=== PATIENT | female | born 1955 | race African-American/Black ===

== ENCOUNTER 2019-05-26 10:39 | Emergency (ER) | payer OTHER ==
[~2019-05-26] VITALS: Ht 165.1 cm; Wt 82.1 kg
[2019-05-26 10:40] VITALS: BP 143/75
[2019-05-26] MEDS ORDERED: ROXICODONE5 MG PO (11:39)
== END 2019-05-26 11:40 | disposition home or self-care (01) ==
LOC: ER 10:39
DX: S93.601A Unspecified sprain of right foot, initial encounter (principal); I10 Essential (primary) hypertension; M79.7 Fibromyalgia; Z90.49 Acquired absence of other specified parts of digestive tract; X58.XXXA Exposure to other specified factors, initial encounter; Y93.B9 Activity, other involving muscle strengthening exercises; Y92.89 Other specified places as the place of occurrence of the external cause; Y99.8 Other external cause status

== ENCOUNTER 2019-06-14 09:30 | Inpatient (IN) | payer OTHER ==
[~2019-06-14] VITALS: Ht 165.1 cm; Wt 81.7 kg
[~2019-06-14 09:30] MED LIST: ROXICODONE5 MG PO
[2019-06-14 09:33] VITALS: BP 147/88
[2019-06-14 10:27] LABS: HEMATOCRIT 38.3 % (37.0-47.0); HEMOGLOBIN 12.5 gm/dL (12.0-15.0); MCH 27.9 pg (26.0-34.0); MCHC 32.6 g/dL (28.0-37.0); MCV 85.5 fL (80.0-100.0); RBC 4.48 mil/uL (4.20-5.00); RDW 14.3 % (10.5-14.5); WBC 4.9 thou/uL (4.0-11.0)
[2019-06-14 10:39] LABS: ANION GAP 11 mmol/L (7-16); BUN 13 mg/dL (7-18); CALCIUM 9.7 mg/dL (8.5-10.1); CHLORIDE 99 mmol/L (98-107); CO2 29 mmol/L (21-32); CREATININE 0.9 mg/dL (0.6-1.0); GLUCOSE 171 mg/dL (74-106); SALICYLATE < 2.8 mg/dL (2.8-20.0); SODIUM 139 mmol/L (136-145)
[2019-06-14 10:47] LABS: URINE BILIRUBIN NEGATIVE (Negative); URINE BLOOD NEGATIVE (Negative); URINE CLARITY CLEAR; URINE COLOR YELLOW; URINE GLUCOSE-RANDOM* NEGATIVE (Negative); URINE KETONES NEGATIVE (Negative); URINE NITRITE-REFLEX NEGATIVE (Negative); URINE PROTEIN (DIPSTICK) NEGATIVE (Negative); URINE UROBILINOGEN 0.2 E.U./dl (0.2-1.0)
[2019-06-14 10:48] LABS: URINE LEUKOCYTES-REFLEX 1+ (Negative)
[2019-06-14 10:55] LABS: AMP/METHAMP Negative (Negative); BARBITURATES Negative (Negative); BENZODIAZEPINES Negative (Negative); COCAINE Negative (Negative); METHADONE Negative (Negative); OPIATES Negative (Negative); PCP Negative (Negative)
[2019-06-14 11:06] LABS: BACTERIA-REFLEX 1-9 Few /HPF (None Seen); CASTS None Seen /LPF (None Seen); CRYSTALS None Seen /LPF (None Seen); SQUAMOUS 0-3 Few /LPF (0-3); URINE RBC None Seen /HPF (0-2); URINE WBC-REFLEX 0-5 Rare /HPF (0-5)
[2019-06-14 12:20] VITALS: BP 153/86
--- NOTE | 2019-06-14 13:00 | NUR ---
Patient admitted to [facility]. Patient arrived via bed from the emergency department. Patient in good spirits with a soft, relaxed affect. Patient ambulates without assistence. Patients assessment reveals clear breath sounds, active bowel sounds, and s1 s2 present upon auscultation. Patients blood pressure was elevated at 160/99, pulse 77. Patient states that she has been depressed and has felt hopeless. Patient stated that she had a plan for suicide by overdosing on pills. Patient given admission documentation and signed consents for treatment.
--- NOTE | 2019-06-14 18:14 | NUR ---
PT. SITTING ON THE UNIT MOST OF THE AFTERNOON. HER BELONGINGS HAVE BEEN GONE THROUGH. VALUABLES AND MONEY SENT TO SECURITY. PT. AWARE OF THIS.
[2019-06-14 20:28] VITALS: BP 149/95
--- NOTE | 2019-06-15 01:50 | NUR ---
1909-Report received from day shift nurse and care assumed. Ronda had a flat affect, sat in the day room with a peer, bright affect at times as well as she talked with a peer and staff. She denied any SI saying she felt safe here. She refused to give her jewelry to this freelance writer/earrings and rings saying "no they won't fall off", "I won't lose them", "No, I don't want them locked up. I'll keep them." She was cooperative with assessment, had no further c.o. pain as she had Tylenol earlier in the evening/day shift nurse for fibromyalgia pain. She requested something for constipation, said it had been a week since having a bowel movement. Bowel sounds hypoactive, no abdomen pain or discomfort, soft. She was given Milk of Magnesia with warm prune juice. She was A/O x 3, watched television, soft spoken. She was HS med. compliant. At 2300 she was awake still and requested something to help her sleep. She said the medicine she recalls helping her was Benadryl. The was called and ordered Benadryl 50 mg. po x 1 now which she was given. It was effective as she fell asleep soundly later. No further c.o. pain also.
[2019-06-15 05:50] LABS: HEMATOCRIT 35.4 % (37.0-47.0); HEMOGLOBIN 11.5 gm/dL (12.0-15.0); MCH 28.3 pg (26.0-34.0); MCHC 32.6 g/dL (28.0-37.0); MCV 86.9 fL (80.0-100.0); RBC 4.07 mil/uL (4.20-5.00); RDW 14.7 % (10.5-14.5); WBC 5.8 thou/uL (4.0-11.0)
[2019-06-15 06:41] LABS: ANION GAP 10 mmol/L (7-16); BUN 10 mg/dL (7-18); CALCIUM 9.2 mg/dL (8.5-10.1); CHLORIDE 103 mmol/L (98-107); CHOLESTEROL 145 mg/dL (<200); CO2 29 mmol/L (21-32); CREATININE 0.9 mg/dL (0.6-1.0); GLUCOSE 101 mg/dL (74-106); HDL CHOLESTEROL 75 mg/dL (>40); LDL CHOLESTEROL 55 mg/dL (<100); MAGNESIUM 2.4 mg/dL (1.8-2.4); POTASSIUM 3.4 mmol/L (3.5-5.1); SERUM ASSESSMENT Clear; SODIUM 142 mmol/L (136-145); TC:HDL 1.9 Ratio (Not establshd); TRIGLYCERIDE 75 mg/dL (<150); VLDL 15 mg/dL (<40)
[2019-06-15 07:10] VITALS: BP 146/91
[2019-06-15 07:40] VITALS: BP 146/91
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
--- NOTE | 2019-06-15 13:38 | NUR ---
Alert, sitting at table without s/o distress. States she has pain of 9/10 from her fibromyalgia. States back hurts. When offered Tylenol she stated that usually only hydrocodone works. Told her that only Tylenol was ordered and we would have to discuss with Dr. Amin. Asked her about her previous discussion with Dr. Amin as I had been there had been a discussion yesterday r/t pain management. She states that she takes Aleeve at home and that worked. Spoke with Dr. Amin around 0900 and he ordered Aleeve. She stated that pain had decreased to a 6 from Tylenol and further decreased to a 0 after Aleeve. Concerned that her was hospitalized on 4th floor and wanted an update on his condition. Dr. Amin stated that he could visit if possible but that she could not visit [address] [place] [address]. Pt. contacted [address] [place] [address] RN for update via phone. Denies SI/HI. States the reason she is here is that her is not coming home, that he will transferred to long-term and that she is having a difficult time coping. States she is focused on getting therapy here and post discharge. Family here during visiting hours. States she had a good visit and was very happy to see them. Sitting at table, relaxed without s/o distress at this time. Visiting with peers. Breath sounds clear t/o, bilaterally equal. Regular HR auscultated. Color pink with brisk capillary refill and palpable peripheral pulses. Active bowel sounds over soft, rounded abdomen. Ambulates without difficulty.
[2019-06-15 20:05] VITALS: BP 152/96
--- NOTE | 2019-06-15 22:41 | NUR ---
ASSUMED CARE ON 06/15/19 @ 19:00, IN DAY ROOM SITTING IN A CHAIR AT THE TABLE. COOPERATED WITH ASSESSMENT AND ADMINISTRATION OF HS MEDS. REQUESTED SLEEP MEDS, NEW ORDER PROVIDED BY DR. TRAN AT PATIENT REQUEST. BENADRYL 50MG ADMINISTERED @ 2200. WILL CONTINUE TO MONITOR Q 12 MINUTES FOR PATIENT SAFETY.
[2019-06-15 23:12] VITALS: BP 152/96
--- NOTE | 2019-06-16 01:58 | NUR ---
ORDER OBTAINED FOR MELATONIN 5 MG AND CLONADINE 0.2MG FROM ROSA SOLIS NP FOR INSOMNIA AND B/P OF 147/97 HR 62. PROVIDED @ 0130. TYLENOL 650 AND METHYL SALICYLATE PROVIDED @ 0200. WILL CONTINUE TO MONITOR Q 12 MINUTES FOR PATIENT SAFETY AND WELL BEING.
--- NOTE | 2019-06-16 06:23 | NUR ---
WENT TO BED @ ABOUT 02:45 SLEPT WITH SNORING NOTED UNTIL 06:15 WHEN AWAKENED FOR REFRIGERATOR REPAIR TECHNICIAN MEDS. SLEPT 3.4 HOURS.
[2019-06-16 07:36] VITALS: BP 144/92
[2019-06-16 10:18] VITALS: BP 144/92
--- NOTE | 2019-06-16 10:27 | NUR ---
704 Report received from overnight shift, patient ate breakfast took medication without incidence. Patient cooperative calm participated in groups. Will continue to monitor for safety.
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
[2019-06-16 19:54] VITALS: BP 144/86
--- NOTE | 2019-06-17 01:11 | NUR ---
Care assumed of patient at 1915: Patient seated in day room at start of shift. Patient alert and oriented x4. Patient calm, pleasant and cooperative. Patient denies pain or discomfort at this time. Patient denies anxiety and depression. Denies SI/HI/AH/VH. No s/s of delusional or paranoia behaviors. Patient has good insight as to why she is admitted. Patient reports that she was feeling depressed that she could no longer care for her and he had to be placed in a prison, however, he is now inpatient at the hospital. Patient reports that she has been getting updates from her sons and knows that he is very sick with multiple health issues. Patient smiling and reporting that she had a good visit with her son and daughter in law today. Patient interacting well with staff and peers. Patient ate 100% HS snack. Patient took HS medication whole without difficulty. Patient did report that she has been having difficulty sleeping and requested PRN Benadryl to help her sleep. Medication provided. Patient questioned about using a CPAP when sleeping. Patient reports that she usually uses a CPAP at home. Patient reports that she forgot to pass the information to her son to have him bring her CPAP to the hospital. Will pass on in nursing report to have nurse contact son to bring home CPAP in. Patient was able to retire to bed at a reasonable hour and has been resting quietly this evening. Patient also denies any anxiety or depression this evening.
[2019-06-17 07:48] VITALS: BP 145/92
[2019-06-17 09:15] VITALS: BP 145/92
--- NOTE | 2019-06-17 11:29 | NUR ---
ASSUMED CARE AT 0700 THIS MORNING. PT. UP ON THE UNIT SITTING TALKING WITH PEER. COOPERATIVE WITH ASSESSMENT, TAKING MEDICATIONS. SHE ATTENDED GROUP. HAS NOT TALKED ABOUT HER OR HIS CARE YET THIS SHIFT. DENIES SI/HI OR AVH TODAY.
[2019-06-17 14:20] VITALS: BP 145/92
--- NOTE | 2019-06-17 14:27 | NUR ---
DOUGLAS attended a family meeting with pt, her sons Max and Messi, her sister Sumi, her daughter via phone, and the psych doctor. During this meeting it was revealed that pt has decided to stop dialysis for her ; it is her belief that he wants to stop because he is suffering and has been on dialysis for years. Discharge planning was discussed, and it was decided due to the timeliness of pt needing to be with her before he passes, she will discharge 06/18 and undergo any cognitive testing after he passes away. Until he passes away, she will live with one of her sons. DOUGLAS provided pt and her family with a listing of hospice providers; her will be returning back to his [facility] with hospice. DOUGLAS team will continue to follow pt during her stay.
[2019-06-17 20:18] VITALS: BP 147/90
[2019-06-17 21:30] VITALS: BP 147/90
--- NOTE | 2019-06-18 02:30 | NUR ---
PATIENT HAS BEEN UP AND DOWN SO FAR TONIGHT. SHE IS EAGER TO BE DISCHARGED IN THE MORNING. SHE WAS HOPING SHE COULD SLEEP TONIGHT. BENADRYL AND MELATONIN HAVE BEEN GIVEN TO PATIENT AND SHE AWOKE WITH C/O STUFFY NOSE. ORDER RECEIVED FROM ROSA FREIRE NP FOR NASAL SALINE SPRAY. PATIENT HAS HAD DOSE OF THIS ALSO. PATIENT IS UP AT THIS TIME AND WALKING BACK TO HER ROOM TO TRY AND SLEEP. ENCOURAGING PATIENT TO LAY DOWN AND TRY AND RELAX INSTEAD OF SITTING UP IN DINING ROOM WHERE SOME PATIENTS ARE DISTRACTIVE. PATIENT IS YAWNING ALOT BUT UNABLE TO RELAX AND SHUT DOWN HER MIND. WILL CONTINUE TO MONITOR.
--- NOTE | 2019-06-18 06:30 | NUR ---
PATIENT AWOKE TO TAKE EARLY AM MEDS AND WENT BACK TO SLEEP. SHE IS SLEEPING COMFORTABLY AT THIS TIME. SHE DENIES PAIN OR DISCOMFORT. SHE HAS 3.6 HOURS SLEEP IN UP TO 6 AM. PT TO D/C TO HOME WITH SON TODAY AT 1300.
[2019-06-18 09:07] VITALS: BP 148/88
--- NOTE | 2019-06-18 09:18 | NUR ---
ASSUMED CARE AT 0700. PATIENT ALERT AND ORIENTED X 4. CALM AND COOPERATIVE. TOOK MEDICATION AND BREAKFAST WELL. ATTENDED GROUP THERAPY. SHE IS EXCITED THAT SHE IS GOING HOME TODAY. wILL CONTINUE WITH PLAN OF CARE.
[2019-06-18 09:56] VITALS: BP 148/88
--- NOTE | 2019-06-18 11:03 | NUR ---
DOUGLAS received a call from pt's son Messi who said they had decided to go with [facility] for their father. DOUGLAS talked with pt who agreed; DOUGLAS asked pt if she would like her to get this started and she said she would. DOUGLAS contacted Anna with [facility] who said there are reps on site today to see another pt, and can meet with this pt after they finish. She asked that pt's husbands staff fax a referral to [phone]. DOUGLAS contacted pt 's casemanager who said she is in a meeting, but will meet with DOUGLAS after she is finished. DOUGLAS team will continue to follow pt during her stay.
[2019-06-18 11:26] VITALS: BP 145/92
[2019-06-18] MEDS ORDERED: LOPRESSOR100 M1 PO (12:54)
[2019-06-18] MEDS ORDERED: COZAAR100 MG PO (12:55)
[2019-06-18] MEDS ORDERED: NORVASC10 MG PO (12:55)
[2019-06-18] MEDS ORDERED: NAPROXEN250 MG PO (12:56)
[2019-06-18] MEDS ORDERED: SEROQUEL 25 MG25 M1 PO (12:56)
[2019-06-18] MEDS ORDERED: EFFEXOR XR75 MG PO (12:56)
[2019-06-18] MEDS ORDERED: KLOR-CON 10 ER10 MEQ PO (12:57)
[2019-06-18] MEDS ORDERED: SYNTHROID50 MCG PO (12:57)
--- NOTE | 2019-06-18 14:11 | NUR ---
DISCHARGE INSTRUCTIONS REVIEWED WITH PATIENT AND SON INCLUDING MEDICATIONS AND FOLLOW UP APPOINTMENTS-PT/FAMILY DENY QUESTIONS OR CONCERNS. DENIES SI/SH/HI AT TIME OF CH-[id number]-WTDCIM ACUTE ANXIETY/PSYCHOSIS.
--- NOTE | 2019-06-19 22:05 | D ---
[facility] [place] [address] DISCHARGE SUMMARY Name: FLAVIA PEREYRA Room #: 520-B [facility] IN M.R.#: [id number] Admission: 06/14/19 Attend Phys: Messi Amin DO Discharge: 06/18/19 Date of : 57 Report #: [id number] THIS REPORT FOR: //name// CC: Messi Amin Sarah Jack DATE OF SERVICE: 06/18/2019 ATTENDING PHYSICIAN: Messi Amin DO HARDWARE DESIGNER AT THE TIME OF DISCHARGE: Rk Garza MD DISCHARGE DIAGNOSIS: Major depressive disorder, recurrent, severe, cannot exclude stroke with psychotic features. ADDITIONAL DIAGNOSES: Hypertension, hypothyroidism, asymptomatic bacteriuria. DISCHARGE MEDICATIONS: Metoprolol tartrate 100 mg p.o. b.i.d., hold for pulse less than 60 for hypertension, amlodipine 10 mg p.o. daily for hypertension, losartan 100 mg p.o. daily for hypertension, naproxen 500 mg p.o. b.i.d. for chronic pain, Effexor XR 75 mg p.o. daily, quetiapine 75 mg p.o. at bedtime for sleep, potassium chloride 10 mEq p.o. daily that is Klor-Con ER for hypokalemia, levothyroxine 50 mcg oral daily at 0700. REASON FOR ADMISSION: A 63-year-old female who presented to the ER, brought by a sister with complaint of suicidal ideation. The patient's was also concurrently admitted for medical reasons at [facility], on hemodialysis. HOSPITAL COURSE: We had pretty brisk response treating the patient with a regimen, I believe she is accustomed to, namely venlafaxine and she was on Fetzima and loxapine, so switched to venlafaxine and quetiapine and was given medication for muscle relaxant, some baclofen. At the day of discharge, the patient was in stable condition. I should add during the admission it came up that the patient was actually meeting with the staff that were taking care of her . She made the election for comfort care and no more hemodialysis. The patient's suffered a great degree. Ordinarily, efforts should be made looking at placement for the patient, but then given the 's grave medical situation, discharge was recommended. We met with her two sons, her sister and her daughter, they tele-videoed to discuss the options. The patient will be living with her son, Max. VITAL SIGNS: Today at the time of discharge temperature 36.7, respirations 15, BP 153/92. GENERAL: Normal gait and station. [address] [address] DISCHARGE SUMMARY Name: FLAVIA PEREYRA Room #: 520B-B DIS IN M.R.#: [id number] Admission: 06/14/19 Attend Phys: Messi Amin DO Discharge: 06/18/19 Date of : 57 Report #: [id number] MENTAL STATUS EXAMINATION: This is a well-developed, fairly-nourished black female wearing glasses. Attention fair. Concentration fair. Speech normal rate, volume and tone. Thought process is linear, focused on her , end of life near passing. No psychomotor agitation and no psychomotor retardation. Denied SI or HI. Denied hopelessness, helplessness. Denied homicidal intent or plan. Memory not formally tested on day of discharge. Insight fair to limited. Judgment fair. Fund of knowledge greater than average. PROGNOSIS: For this patient is guarded and will depend on her management of the current stressors and follow through by her family and her after that. They are aware of her having some cognitive limitations. <ELECTRONICALLY SIGNED> By: Messi Amin DO 06/19/195 27 0001 Messi Amin DO /nt
== END 2019-06-18 13:30 | disposition home or self-care (01) | DRG 885 ==
LOC: ER 09:30 → SBH 11:50 → EROBS 11:50 → SBH 11:50
PROVIDERS: Emergency Medicine; Internal Medicine; ADMIT Psychiatry & Neurology Psychiatry
DX: F33.2 Major depressive disorder, recurrent severe without psychotic features (principal); R45.851 Suicidal ideations; F41.9 Anxiety disorder, unspecified; I10 Essential (primary) hypertension; M79.7 Fibromyalgia; E03.9 Hypothyroidism, unspecified; R82.71 Bacteriuria; K75.9 Inflammatory liver disease, unspecified
CPT/HCPCS: 10880